=== PATIENT | male | born 1955 | race Caucasian/White ===

== ENCOUNTER → 2023-01-24 09:29 | Outpatient (BNVA) | payer MEDICARE, SELFPAY | PROVIDERS: Visit Provider Podiatrist Foot & Ankle Surgery | DX: R09.89 Other specified symptoms and signs involving the circulatory and respiratory systems; I73.9 Peripheral vascular disease, unspecified; L60.0 Ingrowing nail | CPT/HCPCS: 73630; 99203 ==

== ENCOUNTER 2023-02-13 09:03 | Outpatient (CLI) | payer MEDICARE, SELFPAY ==
--- NOTE | 2023-02-13 09:06 | USCV_ITS ---
Hector Dove Age: 67 Gender: M : 1955 Exam Date: 02/13/2023 10:06 Ordering Phys: Rambo Hurtado DPM Technologist: Exam Location: [facility] [place] Indication: decreased pulses FINDINGS pt could only tolerate ryley portion of exam. The resting RYLEY on the right zero 0.43 with a resting TBI of 0.27. The right dorsalis pedis artery could not be identified Resting RYLEY of zero 1.02 on the left side and resting TBI 0.87 The PPG waveform showed a flatline on the right side at the ankle. On the left side, there is a loss of dicrotic notch CONCLUSIONS 1. Abnormal resting RYLEY and TBI on the right side suggesting severe peripheral artery disease with possibly occluded dorsalis pedis artery 2. Normal resting RYLEY and TBI on the left side with abnormal PPG waveforms, suggesting arterial sclerosis with no significant arterial obstruction Dr Renea Brito MD [facility] (Electronically Signed) Final Date: 13 February 2023 10:36 S
== END 2023-02-13 09:04 | disposition home or self-care (01) ==
LOC: RAD 09:03
PROVIDERS: Visit Provider Podiatrist Foot & Ankle Surgery
DX: R09.89 Other specified symptoms and signs involving the circulatory and respiratory systems (principal); R93.6 Abnormal findings on diagnostic imaging of limbs
CPT/HCPCS: 93923